=== PATIENT | female | born 2005 | race Caucasian/White ===

== ENCOUNTER 2025-08-27 23:06 | Emergency (ER) | payer OTHER, BC ==
[~2025-08-27] VITALS: Ht 149.9 cm; Wt 41.0 kg
[2025-08-27 23:08] VITALS: O2SAT 100
[2025-08-28 00:55] VITALS: BP 126/77; PULSE 90; RESP 16; TEMP 36.7; O2SAT 98
== END 2025-08-28 00:57 | disposition home or self-care (01) ==
LOC: ER 23:06
DX: M79.632 Pain in left forearm (principal); M54.2 Cervicalgia; M25.512 Pain in left shoulder; M25.532 Pain in left wrist; Z88.1 Allergy status to other antibiotic agents; V89.2XXA Person injured in unspecified motor-vehicle accident, traffic, initial encounter; Y93.89 Activity, other specified; Y92.410 Unspecified street and highway as the place of occurrence of the external cause; Y99.8 Other external cause status
CPT/HCPCS: 71045; 73030; 73060; 73080; 73090; 73110; 99284